=== PATIENT | male | born 1970 | race Caucasian/White ===

== ENCOUNTER 2017-08-14 05:30 | Inpatient (IN) | payer OTHER ==
[~2017-08-14] VITALS: Ht 177.8 cm; Wt 111.1 kg
[2017-08-14 05:33] VITALS: Ht 177.8 cm; Wt 111.1 kg
[2017-08-14 07:54] LABS: microscopic required? NO
[2017-08-14 08:00] LABS: urine erythrocyte NEGATIVE (NEGATIVE)
[2017-08-14 08:10] LABS: BASOPHIL % 0.2 % (0-2); PLATELET COUNT 324 x10^3mcL (130-400); RED CELL DISTRIBUTION WIDTH 12.6 % (11.5-14.5)
[2017-08-14 08:14] LABS: CALCIUM 9.2 mg/dL (8.5-10.1); CARBON DIOXIDE 27.7 mmol/L (21-32); CHLORIDE SERUM 100 mmol/L (98-107); CREATININE SERUM 0.9 mg/dL (0.7-1.3); GFR1 > 60 mL/min; GLUCOSE SERUM 106 mg/dL (74-106); POTASSIUM SERUM 3.8 mmol/L (3.5-5.1); SODIUM SERUM 138 mmol/L (136-145)
[2017-08-14 08:19] LABS: ALBUMIN 3.6 g/dL (3.4-5.0); ALKALINE PHOSPHATASE 99 U/L (46-116); ALT/SGPT 58 U/L (16-63); AMYLASE 45 U/L (25-115); AST/SGOT 53 U/L (15-37); BILIRUBIN TOTAL 0.8 mg/dL (0.20-1.00); HDL CHOLESTEROL 42 mg/dL (40-60); LIPASE 87 IU/L (73-393); TOTAL PROTEIN, SERUM 7.6 g/dL (6.4-8.2)
[2017-08-14 08:20] LABS: CHOLESTEROL 118 mg/dL (<200)
[2017-08-14] MEDS ORDERED: FLA500 PO (09:20)
[2017-08-14] MEDS ORDERED: GOOD NEIGHBOR P20 M2 PO (09:21)
[2017-08-14] MEDS ORDERED: BIAXIN FILMTAB500 MG PO (09:21)
[2017-08-14] MEDS ORDERED: ALPRAZOLAM1 MG PO (09:22)
[2017-08-14] MEDS ORDERED: BENTYL20 MG PO (09:23)
[2017-08-14] MEDS ORDERED: VIBERZI100 MG PO (09:23)
[2017-08-14 10:32] VITALS: BP 129/94
[2017-08-14 12:18] VITALS: BP 129/94
[2017-08-14 13:10] VITALS: BP 113/66
[2017-08-14 13:43] LABS: AMPHETAMINE QUAL UR NONE DETECTED (NEG <=1000)
[2017-08-14 14:03] LABS: MAGNESIUM 2.1 mg/dL (1.8-2.4); PHOSPHOROUS 2.6 mg/dL (2.5-4.9)
[2017-08-14 14:04] LABS: CHOLESTEROL/HDL RATIO 2.9
[2017-08-14 17:30] VITALS: BP 115/69
[2017-08-14 21:04] VITALS: BP 112/75
[2017-08-15 05:25] VITALS: BP 111/71
[2017-08-15 08:12] LABS: T3 TOTAL 0.99 ng/mL
[2017-08-15 08:13] VITALS: BP 120/71
[2017-08-15 08:24] LABS: CARBON DIOXIDE 27.1 mmol/L (21-32); CHLORIDE SERUM 107 mmol/L (98-107); CREATININE SERUM 1.1 mg/dL (0.7-1.3); GFR1 > 60 mL/min; GLUCOSE SERUM 95 mg/dL (74-106); POTASSIUM SERUM 4.5 mmol/L (3.5-5.1); SODIUM SERUM 141 mmol/L (136-145)
[2017-08-15 08:47] LABS: FREE T4 1.49 ng/dL (0.76-1.46); FREE THYROXINE INDEX 3.9 ug/dL (1.4-4.5); T4(THYROXINE) 9.4 ug/dL (4.7-13.3)
[2017-08-15 08:51] LABS: BASOPHIL % 0.3 % (0-2); PLATELET COUNT 277 x10^3mcL (130-400)
[2017-08-15 13:46] LABS: BILIRUBIN DIRECT 1.35 mg/dL (0.0-0.2); TOTAL PROTEIN, SERUM 6.6 g/dL (6.4-8.2)
[2017-08-15 13:49] LABS: ALBUMIN 3.2 g/dL (3.4-5.0)
[2017-08-15 14:05] VITALS: BP 126/69
[2017-08-15 15:09] LABS: BILIRUBIN DIRECT 1.05 mg/dL (0.0-0.2); BILIRUBIN TOTAL 1.6 mg/dL (0.20-1.00); TOTAL PROTEIN, SERUM 6.6 g/dL (6.4-8.2)
[2017-08-15 16:41] VITALS: BP 138/88
[2017-08-15 21:45] VITALS: BP 145/93
[2017-08-16 06:32] VITALS: BP 132/80
[2017-08-16 07:06] LABS: PLATELET COUNT 340 x10^3mcL (130-400); RED CELL DISTRIBUTION WIDTH 12.5 % (11.5-14.5)
[2017-08-16 07:27] LABS: ALBUMIN 3.2 g/dL (3.4-5.0); ALKALINE PHOSPHATASE 189 U/L (46-116); ALT/SGPT 233 U/L (16-63); AST/SGOT 87 U/L (15-37); BILIRUBIN TOTAL 0.7 mg/dL (0.20-1.00); CALCIUM 8.8 mg/dL (8.5-10.1); CARBON DIOXIDE 27.2 mmol/L (21-32); CHLORIDE SERUM 102 mmol/L (98-107); CREATININE SERUM 0.9 mg/dL (0.7-1.3); GFR1 > 60 mL/min; GLUCOSE SERUM 109 mg/dL (74-106); POTASSIUM SERUM 4.3 mmol/L (3.5-5.1); SODIUM SERUM 136 mmol/L (136-145); TOTAL PROTEIN, SERUM 6.7 g/dL (6.4-8.2)
[2017-08-16 07:59] LABS: MAGNESIUM 1.8 mg/dL (1.8-2.4)
[2017-08-16 08:33] LABS: BASOPHIL % 0 % (0-2)
[2017-08-16 18:28] VITALS: BP 134/88
[2017-08-17 06:02] VITALS: BP 141/84
[2017-08-17 07:27] LABS: BASOPHIL % 0.2 % (0-2); PLATELET COUNT 288 x10^3mcL (130-400); RED CELL DISTRIBUTION WIDTH 12.6 % (11.5-14.5)
[2017-08-17 07:40] LABS: CALCIUM 8.6 mg/dL (8.5-10.1); CARBON DIOXIDE 28.3 mmol/L (21-32); CHLORIDE SERUM 102 mmol/L (98-107); CREATININE SERUM 0.8 mg/dL (0.7-1.3); GFR1 > 60 mL/min; GLUCOSE SERUM 102 mg/dL (74-106); POTASSIUM SERUM 4.2 mmol/L (3.5-5.1); SODIUM SERUM 139 mmol/L (136-145)
[2017-08-17 09:17] VITALS: BP 154/97
[2017-08-17] MEDS ORDERED: APAP/HYDROCODON1 T13 PO (11:54)
[2017-08-17] MEDS ORDERED: COL100 PO (11:54)
[2017-08-17] MEDS ORDERED: LAC PO (11:55)
[2017-08-17] MEDS ORDERED: LEVOFLOXACIN750 M1 PO (11:55)
[2017-08-17 12:56] VITALS: BP 154/97
== END 2017-08-17 14:31 | disposition home or self-care (01) | DRG 418 ==
LOC: ED 05:30 → MU 09:21 → DU 09:21 → MU 08-15 06:44
PROVIDERS: Emergency Medicine; Family Medicine; Family Medicine Sports Medicine; Internal Medicine; Surgery
PROC: 0FT44ZZ Resection of Gallbladder, Percutaneous Endoscopic Approach (ICD-10-PCS; principal; 2017-08-15 10:00)
PROC: 0FC98ZZ Extirpation of Matter from Common Bile Duct, Via Natural or Artificial Opening Endoscopic (ICD-10-PCS; 2017-08-16 08:30)
DX: K80.51 Calculus of bile duct without cholangitis or cholecystitis with obstruction (principal); E44.1 Mild protein-calorie malnutrition; I16.0 Hypertensive urgency; R74.0 Nonspecific elevation of levels of transaminase and lactic acid dehydrogenase [LDH]; K22.70 Barrett's esophagus without dysplasia; K44.9 Diaphragmatic hernia without obstruction or gangrene; K58.9 Irritable bowel syndrome, unspecified; K29.70 Gastritis, unspecified, without bleeding; K76.89 Other specified diseases of liver; Z68.32 Body mass index [BMI] 32.0-32.9, adult
CPT/HCPCS: 43262; 83880; 84439; 90658; 94150; C1758; C1769; J0330; J0690; J1170; J1885; J1956; J2175; J2250; J2405; J2704; J2710; J3010; J3490; J7030; J7120; Q0092; Q9967